=== PATIENT | female | born 1985 | race Caucasian/White ===

== ENCOUNTER 2024-01-17 23:56 | Emergency (ER) | payer MEDICAID, OTHER ==
[~2024-01-17] VITALS: Ht 152.4 cm; Wt 129.2 kg
[2024-01-18 02:23] LABS: Urine Bacteria None Seen /hpf (None Seen)
[2024-01-18 03:17] LABS: Urine Blood Negative /uL (Negative); Urine Clarity Turbid (Clear); Urine Color Yellow (Yellow); Urine Mucus FEW (None Seen); Urine Protein, UAD TRACE (Negative); Urine Specific Gravity 1.033 (1.001-1.035); Urine Urobilinogen Normal (Negative); Urine WBC 5 /hpf (0 - 5); Urine pH 5.5 (5.0-9.0)
[2024-01-18 03:21] LABS: Alanine Aminotransferase 31 U/L (7-40); Albumin 4.6 g/dL (3.2-4.8); Alkaline Phosphatase 117 U/L (46-116); Anion Gap 7 (5-15); Aspartate Aminotransferase 20 U/L (13-40); BUN/Creatinine Ratio 15.6 (10.0-20.0); Basophils # (auto) 0 10 ^3/uL (0-0.2); Basophils % (auto) 0.3 % (0.0-2.0); Bilirubin, Total 0.7 mg/dL (0.2-1.0); Blood Urea Nitrogen 10 mg/dL (9-23); Calcium 9.6 mg/dL (8.7-10.4); Carbon Dioxide 26 mmol/L (20-31); Chloride 107 mmol/L (98-107); Eosinophils # (auto) 0.2 10 ^3/uL (0-0.8); Eosinophils % (auto) 2.2 % (0.0-7.0); Glucose 85 mg/dL (74-106); Hematocrit 35.3 % (36.0-46.0); Hemoglobin 12.2 g/dL (12.2-16.2); Lipase 38 U/L (12-53); Lymphocytes # (auto) 2.1 10 ^3/uL (0.4-5.4); Mean Corpuscular Hemoglobin 29.7 pg (28.0-32.0); Mean Corpuscular Hgb Conc. 34.6 g/dL (32.0-36.0); Mean Corpuscular Volume 85.9 fL (80.0-100.0); Monocytes # (auto) 0.6 10 ^3/uL (0-1.3); Monocytes % (auto) 7.1 % (0.0-12.0); Neutrophils # (auto) 5.3 10 ^3/uL (1.6-8.6); Neutrophils % (auto) 64.4 % (37.0-80.0); Nucleated Red Blood Cells % 0.1 %; Platelet Count (auto) 285 10^3/uL (140-450); Potassium 3.7 mmol/L (3.5-5.1); Red Blood Cells 4.11 10^6/uL (4.0-5.20); Red Cell Distribution Width 15.1 % (11.8-14.3); Sodium 140 mmol/L (136-145); Total Protein 7.5 g/dL (5.7-8.2); White Blood Cell 8.2 10^3/uL (4.4-10.8)
[2024-01-18] MEDS: SODIUM CHLORIDE 0.9% 1,000 ML IV ONE (04:13)
[2024-01-18 04:22] VITALS: BP 112/64; PULSE 72; RESP 20; TEMP 98; O2SAT 98
[2024-01-18] MEDS: KETOROLAC TROMETH 30 MG/ML 1ML VIAL IV ONE (04:29)
[2024-01-18] MEDS: IOHEXOL 300 MG/ML 100ML BOTTLE IJ ONE (05:15)
== END 2024-01-18 06:27 | disposition home or self-care (01) ==
LOC: ER 23:56
DX: R10.11 Right upper quadrant pain (principal); R11.0 Nausea; Z90.49 Acquired absence of other specified parts of digestive tract
CPT/HCPCS: 36415; 74177; 80053; 81001; 83690; 85025; 96361; 96374; 99285; J1885; J7030; Q9967

== ENCOUNTER 2024-05-07 08:03 | Emergency (ER) | payer MEDICAID ==
[~2024-05-07] VITALS: Ht 167.6 cm; Wt 130.7 kg
[2024-05-07 08:22] VITALS: PULSE 79; RESP 16; O2SAT 100
[2024-05-07 08:29] LABS: Urine Bacteria FEW /hpf (None Seen); Urine Blood 3+ /uL (Negative); Urine Clarity Turbid (Clear); Urine Color Colorless (Yellow); Urine Protein, UAD TRACE (Negative); Urine Specific Gravity 1.021 (1.001-1.035); Urine Squamous Epithelial Cell MOD /hpf (<5); Urine Urobilinogen Normal (Negative); Urine WBC 7 /HPF (0-5); Urine pH 5.5 (5.0-9.0)
--- NOTE | 2024-05-07 09:29 | ED.PDOC ---
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 Patient states that she has been experiencing abnormal vaginal bleeding since 04/27/24; with worsening symptoms x2days. Patient relays, that symptoms have worsened in the last two days with heavy bleeding and blood clots; filling about 4 sanitary pads within and hour. Patient states, that she is currently and recalls her LMP being in late January of 2024. Patient comments, that she has been unable to see an COMPOSITOR APPRENTICE due to her doctor retiring; patient is currently in the processes of finding a provider. Patient denies abdominal pain, dysuria, hematuria, or N/V/D. No other symptoms or modifying factors at this time. Chief Complaint: Vaginal Bleed Time Seen by MD: 08:55 Reviewed Notes: Nurses Notes, Medications, Allergies Allergies: Coded Allergies: NO KNOWN ALLERGIES (Unverified , 01/18/24) Information Source: Patient Mode of Arrival: Ambulatory Prehospital treatment: None Severity: None Vaginal Discharge: None Vaginal Lesions: None Vaginal Mass: None Onset Of Mass/Bleeding: Unknown Sexual Activity: Last Consensual Dinosaur: Unknown Control: None Symptoms of Possible : None Associated Signs and Symptoms: Vaginal Bleeding Past Medical History PAST MEDICAL HISTORY: Denies Surgical History: Cholecystectomy 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 Family History Family History: Reviewed,noncontributory to illness Social History Smoker: Non-Smoker Alcohol: Denies ETOH Use Drugs: Denies Drug Use Lives In: Home Constitutional: denies: chills, diaphoresis, fatigue, fever, malaise, sweats, weakness, others EENTM: denies: blurred vision, double vision, ear bleeding, ear discharge, ear drainage, ear pain, ear ringing, eye pain, eye redness, hearing loss, mouth pain, mouth swelling, nasal discharge, nose bleeding, nose congestion, nose pain, photophobia, tearing, throat pain, throat swelling, voice changes, others Respiratory: denies: cough, hemoptysis, orthopnea, SOB at rest, shortness of breath, SOB with excertion, stridor, wheezing, others Cardiovascular: denies: chest pain, dizzy spells, diaphoresis, Dyspnea on exertion, edema, irregular heart beat, left arm pain, lightheadedness, palpitations, PND, syncope, others Gastrointestinal: denies: abdomen distended, abdominal pain, blood streaked bowels, constipated, diarrhea, dysphagia, difficulty swallowing, hematemesis, melena, nausea, poor appetite, poor fluid intake, rectal bleeding, rectal pain, vomiting, others Genitourinary: reports: abnormal vagina bleeding, ; denies: burning, dyspareunia, dysuria, flank pain, frequency, hematuria, incontinence, pain, v agina discharge, urgency, others Neurological: denies: dizziness, fainting, headache, left sided numbness, left sided weakness, numbness, paresthesia, pre-existing deficit, right sided numbness, right sided weakness, seizure, speech problems, tingling, tremors, weakness, others Musculoskeletal: denies: back pain, gout, joint pain, joint swelling, muscle pain, muscle stiffness, neck pain, others Integumetry: denies: bruises, change in color, change in hair/nails, dryness, laceration, lesions, lumps, rash, wounds, others Allergic/Immunocompromised: denies: Difficulty Healing, Frequent Infections, Hives, Itching, others Hematologic/Lymphatic: denies: anemia, blood clots, easy bleeding, easy bruising, swollen glands, others Endocrine: denies: excessive hunger, excessive sweating, excessive thirst, excessive urination, flushing, intolerance to cold, intolerance to heat, unexplained weight gain, unexplained weight loss, others Psychiatric: denies: anxiety, bipolar disorder, depression, hopeless, panic disorder, schizophrenia, sleepless, suicidal, others All Other Systems: Reviewed and Negative Physical Exam General Appearance: Moderate Distress HEENT: Normal ENT Inspection, Pharynx Normal, TMs Normal Neck: Full Range of Motion, Non-Tender, Normal, Normal Inspection Respiratory: Chest Non-Tender, Lungs Clear, No Accessory Muscle Use, No Respiratory Distress, Normal Breath Sounds Cardiovascular: No Edema, No JVD, No Murmur, No Gallop, Normal Peripheral Pulses, Regular Rate/Rhythm Breast Exam: Deferred Gastrointestinal: No Organomegaly, Non Tender, No Pulsatile Mass, Normal Bowel Sounds, Soft Genitalia: Deferred Pelvic: Deferred Rectal: Deferred Extremities: No calf tenderness, Normal capillary refill, Normal inspection, Normal range of motion, Non-tender, No pedal edema Musculoskeletal : Apperance: Normal Neurologic: Alert, hooker off II-XII nml as Tested, No Motor Deficits, Normal Affect, Normal Mood, No Sensory Deficits Cerebellar Function: Normal Reflexes: Normal Skin: Dry, Normal Color, Warm Peripheral Pulses: 3+ Radial (R), 3+ Radial (L) Lymphatic: No Adenopathy Was a procedure done? 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) Vaginal Bleeding: - Complete, - Incomplete, - Inevitable, - Missed, - Threatened, Other (miscarriage) X-Ray, Labs, Meds, VS Vital Signs Date Time Temp Pulse Resp B/P (MAP) Pulse Ox O2 Delivery O2 Flow Rate FiO2 05/07/24 10:02 67 05/07/24 10:00 22 108/54 (72) 100 05/07/24 09:35 79 15 100 Room Air* 0 21 05/07/24 09: 98.3 77 17 115/53 (73) 100 98.3 05/07/24 08:22 79 16 100 Room Air* 0 21 05/07/24 08:18 98.0 79 16 119/61 (80) 100 Lab Test 05/07/24 09:15 05/07/24 08:16 Range/Units Beta HCG, Quantitative 3462.9 H 1.5-4.2 mIU/mL Urine Color Colorless Yellow Urine Clarity Turbid H Clear Urine pH 5.5 5.0-9.0 Urine Specific [place] 1.021 1.001-1.035 Urine Protein Trace H Negative Urine Ketones Negative Negative Urine Blood 3+ H Negative /uL Urine Nitrite Negative Negative Urine Bilirubin Negative Negative Urine Urobilinogen Normal Negative mg/dL Urine Leukocyte Esterase 1+ Negative /uL Urine RBC 224 0 - 4 /hpf Urine Microscopic WBC 7 H 0-5 /HPF Urine Squamous Epithelial Cells Mod <5 /hpf Urine Bacteria Few H None Seen /hpf Urine Glucose Normal Normal mg/dL Patient alert. Complaining of vaginal bleeding. UA shows UTI. Vitals stable. States that she possibly miscarriage. Continue monitoring. Ultrasound reviewed does show no but could be early. Explained to the patient that she will need follow up blood work along with ultrasound. OBGYN. Was given prescription of Keflex antibiotic. Was told to follow up with her primary care physician. Was told to come back if there is any problem. Time of 1ST Reevaluation: 09:25 Reevaluation 1ST: Improved Patient Education/Counseling: Diagnosis, Treatment Family Education/Counseling: No Family Present Departure 1 Departure Time of Disposition: 09:38 Impression: Primary Impression: Vaginal bleeding affecting early Additional Impression: UTI (urinary tract infection) Qualified Codes: N30.01 - Acute cystitis with hematuria Disposition: HOME / SELF CARE / HOMELESS Condition: Good e-Prescriptions Cephalexin (KEFLEX CAPSULE) 250 Mg Cp 250 MG PO QID for 7 Days, #28 BOTTLE Prov: CHRIS ROTHMAN MD 05/07/24 Discharged With: Self Critical Care Note Critical Care Time?: No Stability Stability form required: No Heart Score Heart Score: Heart Score Response (Comments) Value History N/A 0 EKG N/A 0 Age N/A 0 Risk Factors N/A 0 Troponin N/A 0 Total 0 I personally scribed for CHRIS ROTHMAN MD ([email or web address]) on 05/07/24 at 09:29. Electronically submitted by Shaniqua Patten ([email or web address]). CHRIS ROTHMAN MD May 07, 2024 09:29
[2024-05-07 09:35] VITALS: PULSE 79; RESP 15; O2SAT 100
--- NOTE | 2024-05-07 11:41 | DVH ---
OB ULTRASOUND <14 WEEKS: HISTORY: Retained products of conception TECHNIQUE: Multiple real-time grayscale sonographic images of the pelvis with duplex Doppler color f low, spectral and M-mode analysis. TRANSDUCERS: Transabdominal COMPARISON: None FINDINGS: The uterus measures 13.4 x 7.8 x 4.7 cm. Endometrium measures 1.4 cm. The cervix is not visualized Ovaries are not visualized. No gestational sac or pole is visualized. IMPRESSION: Thickened endometrium, without visualized gestational sac, pole or cardiac activity. Diff erential considerations include early, normal intrauterine , an anembryonic and sp ontaneous . Recommend correlation with follow-up beta hCG levels. Repeat ultrasound could be performed if clinically indicated.
[2024-05-07] MEDS ORDERED: CEPH250C PO (11:56)
[2024-05-07 12:05] VITALS: BP 95/38; PULSE 70; RESP 20; TEMP 98.1; O2SAT 100
== END 2024-05-07 12:05 | disposition home or self-care (01) ==
LOC: ER 08:03
DX: O46.90 Antepartum hemorrhage, unspecified, unspecified trimester (principal); O23.41 Unspecified infection of urinary tract in pregnancy, first trimester; N39.0 Urinary tract infection, site not specified; Z3A.01 Less than 8 weeks gestation of pregnancy; Z90.49 Acquired absence of other specified parts of digestive tract
CPT/HCPCS: 36415; 76801; 81001; 84702